=== PATIENT | male | born 1990 | race Caucasian/White ===

== ENCOUNTER 2020-06-15 14:10 | Outpatient (REF) | payer OTHER, SELFPAY | END 2020-06-15 14:11 | disposition home or self-care (01) | LOC: HO.LAB 14:10 | PROVIDERS: PCP Family Medicine; Visit Provider Internal Medicine | DX: Z20.828 Contact with and (suspected) exposure to other viral communicable diseases (principal) | CPT/HCPCS: C9803; U0003 ==

== ENCOUNTER 2020-06-27 14:22 | Emergency (ER) | payer OTHER, SELFPAY ==
--- NOTE | 2020-06-27 | ECG_ITS ---
Test Reason : SYNCOPE Blood Pressure : / mmHG Vent. Rate : 076 BPM Atrial Rate : 076 BPM P-R Int : 148 ms QRS Dur : 084 ms QT Int : 404 ms P-R-T Axes : 074 058 046 degrees QTc Int : 454 ms Sinus rhythm with marked sinus arrhythmia Otherwise normal ECG No previous ECGs available Referred By: Faye Mcmillan Electronically Signed By:TAMI PEGUERO MD
[2020-06-27 15:44] VITALS: BP 117/60; PULSE 64; RESP 16; TEMP 37; O2SAT 96; BMI 25.7
[2020-06-27 17:45] VITALS: BP 101/62; PULSE 87; RESP 16; TEMP 36.7; O2SAT 96
--- NOTE | 2020-06-27 17:45 | CT_ITS ---
EXAMINATION: CT ABDOMEN AND PELVIS WITH CONTRAST CLINICAL INFORMATION: 29-year-old male patient with periumbilical pain. Per chart: History of left testicular cancer and orchiectomy. COMPARISON: None TECHNIQUE: Multidetector volumetric images were obtained from the superior aspect of the liver through the pubic symphysis following administration 85 mL of Omnipaque 350 intravenous contrast. Sagittal and coronal reformatted images were obtained on the technologist's workstation. Oral contrast: No This CT examination was performed using dose optimization techniques as appropriate, variously including the following: *Automated exposure control *Adjustment of mA and/or kV according to patient size (this includes techniques or standardized protocols for targeted exams where dose is matched to indication/reason for exam; i.e. extremities or head) *Use of iterative reconstruction technique DLP: 500 mGy-cm FINDINGS: MANAGER OF ALLIED HEALTH SERVICES: Unremarkable. LUNG BASES: The visualized lung bases are unremarkable. LIVER, GALLBLADDER, AND BILIARY TREE: The liver is normal in size, shape, and attenuation. No focal hepatic lesion or biliary ductal dilatation is present. The gallbladder is unremarkable with no evidence of radiopaque gallstones, gallbladder wall thickening, or obvious pericholecystic inflammatory changes. PANCREAS: Unremarkable. SPLEEN: Unremarkable. ADRENAL GLANDS: Unremarkable. KIDNEYS AND URETERS: The kidneys are normal in size, shape, and attenuation. No hydronephrosis, hydroureter, or calculi seen. No perinephric stranding. BLADDER: Unremarkable. GASTROINTESTINAL TRACT: The small and large bowel are unremarkable. No pericecal inflammatory reaction. ABDOMINAL WALL: No significant hernia is appreciated. LYMPH NODES: Small right lower quadrant mesenteric nodes are present. No sign of retroperitoneal or pelvic lymphadenopathy. VASCULAR: Unremarkable. PELVIC VISCERA: Unremarkable. OSSEOUS STRUCTURES: Unremarkable. CT/CT abdomen pelvis w con IMPRESSION: No significant abnormality.
--- NOTE | 2020-06-27 17:45 | US_ITS ---
EXAMINATION: US SCROTUM CLINICAL INFORMATION: 29-year-old male patient with history of left-sided testicular cancer status post orchiectomy. Now presents with right testicular lump . COMPARISON: None TECHNIQUE: A sonogram of the scrotum was performed assessing lewis-scale appearance and color Doppler flow. FINDINGS: RIGHT: Right testicle measures 4.6 x 2.5 x 2.9 cm, volume 18 mL. No focal testicular parenchymal lesions are visualized. Spectral Doppler analysis was not obtained. Right epididymal head is normal in size. A small cyst is located in the head of the epididymis measuring 0.5 cm. No right hydrocele or varicocele is seen. Right epididymal Doppler flow is normal. US/US scrotum IMPRESSION: 1. Normal right testicle. 2. Small right epididymal head cyst.
--- NOTE | 2020-06-27 17:50 | ED_ITS ---
HPI - General Adult General Chief complaint: Syncope Stated complaint: NVD Time Seen by Provider: 06/27/20 17:18 Source: patient Mode of arrival: ambulatory Limitations: no limitations History of Present Illness HPI narrative: Patient comes to emergency room complaining of a syncopal episode after trying to have a bowel movement. Patient states that earlier today, he had been complaining sharp/crampy abdominal pain in the periumbilical region, patient went to the bathroom trying to have a bowel movement, patient passed out while he was in the bathroom. Patient states that he is not sure if he hit his head but does not believe that he had any head injury. Patient went to urgent care and he was asked to come to emergency room to rule out appendicitis. Patient also mentioned that a few days ago he noticed that he has a pea-sized lump in his right teste, not tender. 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) MD complaint: Abdominal pain, testicular mass Related Data Home Medications Medication Instructions Recorded Confirmed melatonin 10 mg capsule 10 mg PO BEDTIME PRN 06/26/20 Previous Rx's Medication Instructions Recorded hyoscyamine sulfate 0.25 mg PO QID PRN #10 tab 06/27/20 Allergies Allergy/AdvReac Type Severity Reaction Status Date / Time No Known Allergies Allergy Verified 06/26/20 10:36 Review of Systems Review of Systems: Constitutional : No Weight loss, No Fever, No Chills, No Night Sweats, No Fatigue, No Malaise ENT/Mouth : No Hearing loss, No Ear Pain, No Nasal Congestion, No Sinus Pain, No Hoarseness, No sore throat, No Rhinorrhea, No Swallowing Difficulty Eyes: No Eye Pain, No Swelling, No Redness, No Foreign Body, No Discharge, No Vision Changes Cardiovascular : No Chest Pain, No SOB, No Dyspnea on Exertion, No Orthopnea, No Edema, No Palpitations Respiratory : No Cough, No Sputum, No Wheezing, No Smoke Exposure, No Dyspnea Gastrointestinal : No Nausea, No Vomiting, No Diarrhea, complaining of periumbilical and right lower quadrant pain and cramping. Genitourinary : Complaining of a pea-sized testicular tumor on the right side, No Dysuria, No Urinary Frequency, No Hematuria, No Urinary Incontinence, No Urgency, No Flank Pain, No Urinary Flow Changes, No Hesitancy Musculoskeletal : No joint pain, No Myalgias, No Joint Swelling Skin : No Skin Lesions, No rash Neuro : No Weakness, No Numbness, No Paresthesias, complaining of a syncopal episodes/loss of consciousness. No Headache Psych : No Anxiety/Panic, No Depression, No SI/HI/AH/VH, No Social Issues, Heme/Lymph: No Bruising, No Bleeding,No Lymphadenopathy Endocrine : No Polyuria, No Polydipsia, No Temperature Intolerance [facility] Past Medical History Medical History (Updated 06/27/20 @ 20:21 by Faye Mcmillan MD) High cholesterol Testicular cancer Social History Social History Advance Directives: No Advance Directives Information Provided: No Physical Exam Vital Signs: Vital Signs: Last Vital Signs Temp 98.1 F 06/27/20 17:45 Pulse 87 06/27/20 17:45 Resp 16 06/27/20 17:45 BP 101/62 06/27/20 17:45 Pulse Ox 96 06/27/20 17:45 Body Mass Index 25.7 Course Course Course Narrative: I discussed the ultrasound with the patient, patient has a cyst in the teste. Patient's white blood cell count is 16. No acute findings of appendicitis on CT scan or physical exam. Patient being discharged home. Patient feeling better. Likely viral infection, Medical Decision Making Lab Data Result diagrams: 06/27/20 17:58 06/27/20 17:58 Labs: Lab Results 06/27/20 06/27/20 Range/Units 17:58 17:58 WBC 16.0 H (4.8-10.8) X10*3/uL RBC 4.72 (4.60-5.80) X10*6/uL Hgb 14.8 (14.0-18.0) g/dl Hct 42.0 (42-52) % MCV 89.0 (80-98) fL MCH 31.4 (27.0-33.0) pg MCHC 35.2 (31.0-36.0) g/dl RDW 11.5 (11.0-16.0) % Plt Count 205 (160-400) X10*3/uL MPV 10.8 (9.4-12.4) fL Immature Gran % (Auto) 0.2 (0.0-0.4) % Neut % (Auto) 89.8 H (45-73) % Lymph % (Auto) 4.4 L (20-40) % [place] % (Auto) 5.3 (2-11) % Eos % (Auto) 0.0 (0-4) % Baso % (Auto) 0.3 (0-2) % Lymph # (Auto) 0.7 L (1.2-4.9) X10*3/uL [place] # (Auto) 0.9 (0.1-1.2) X10*3/uL Eos # (Auto) 0.0 (0.0-0.4) X10*3/uL Baso # (Auto) 0.1 (0.0-0.2) X10*3/uL Abs Immat Gran (auto) 0.04 H (0.00-0.03) X10*3/uL Absolute Neuts (auto) 14.4 H (2.0-8.3) X10*3/uL Absolute Nucleated RBC 0.000 (0.0-0.012) X10*3/uL Nucleated RBC % (auto) 0.0 (0.0-0.2) /100WBC Sodium 137 (135-145) mmol/L Potassium 4.2 (3.3-5.1) mmol/l Chloride 102 (96-108) mmol/L Carbon Dioxide 27 (22-29) mmol/L Anion Gap 12 (12-20) BUN 16 (9-16) mg/dL Creatinine 0.93 (0.5-1.4) mg/dL Estim Creat Clear Calc 122.5 Estimated GFR > 60 Random Glucose 104 (60-115) mg/dL Calcium 9.2 (8.4-10.2) mg/dL Total Bilirubin 0.7 (0.0-1.0) mg/dL Direct Bilirubin 0.3 (0.0-0.5) mg/dL AST 23 (5-37) U/L ALT 26 (0-40) U/L Alkaline Phosphatase 66 (39-117) U/L Total Protein 7.4 (6.5-8.0) g/dL Albumin 4.7 (3.5-5.0) g/dL Lipase 8 (8-78) U/L Imaging Data CT scan - abdomen: Radiologist's impression: FINDINGS: ALUM OPERATOR: Unremarkable. LUNG BASES: The visualized lung bases are unremarkable. LIVER, GALLBLADDER, AND BILIARY TREE: The liver is normal in size, shape, and attenuation. No focal hepatic lesion or biliary ductal dilatation is present. The gallbladder is unremarkable with no evidence of radiopaque gallstones, gallbladder wall thickening, or obvious pericholecystic inflammatory changes. PANCREAS: Unremarkable. SPLEEN: Unremarkable. ADRENAL GLANDS: Unremarkable. KIDNEYS AND URETERS: The kidneys are normal in size, shape, and attenuation. No hydronephrosis, hydroureter, or calculi seen. No perinephric stranding. BLADDER: Unremarkable. GASTROINTESTINAL TRACT: The small and large bowel are unremarkable. No pericecal inflammatory reaction. ABDOMINAL WALL: No significant hernia is appreciated. LYMPH NODES: Small right lower quadrant mesenteric nodes are present. No sign of retroperitoneal or pelvic lymphadenopathy. VASCULAR: Unremarkable. PELVIC VISCERA: Unremarkable. OSSEOUS STRUCTURES: Unremarkable. CT/CT abdomen pelvis w con IMPRESSION: No significant abnormality. Scrotum ultrasound: Radiologist's impression: FINDINGS: RIGHT: Right testicle measures 4.6 x 2.5 x 2.9 cm, volume 18 mL. No focal testicular parenchymal lesions are visualized. Spectral Doppler analysis was not obtained. Right epididymal head is normal in size. A small cyst is located in the head of the epididymis measuring 0.5 cm. No right hydrocele or varicocele is seen. Right epididymal Doppler flow is normal. US/US scrotum IMPRESSION: 1. Normal right testicle. 2. Small right epididymal head cyst. ECG Data Attestation: I personally reviewed and interpreted this ECG as follows: (Heart rate 76, sinus rhythm, QTC 454, no ST segment depressions or elevations, no T- wave inversions) Discharge Plan Discharge Clinical Impression: Cyst of testis Abdominal pain Qualifiers: Abdominal location: unspecified location Qualified Code(s): R10.9 - Unspecified abdominal pain Patient Disposition: Home, Self-Care Instructions: Abdominal Pain (ED), Scrotal Pain (ED) Additional Instructions: Please follow-up with your primary care physician tomorrow. If you have any worsening or new symptoms, please return to the emergency room or call 911 Prescriptions: New hyoscyamine sulfate 0.125 mg tablet 0.25 mg PO QID PRN (Reason: dyspepsia) Qty: 10 RF: 0 No Action melatonin 10 mg capsule 10 mg PO BEDTIME PRNRF: 0
[2020-06-27 18:06] LABS: Basophils Absolute Auto 0.1 X10*3/uL (0.0-0.2); Basophils Percent Auto 0.3 % (0-2); Hemoglobin 14.8 g/dl (14.0-18.0); Imm Gran Abs Auto 0.04 X10*3/uL (0.00-0.03); Imm Gran Pct Auto 0.2 % (0.0-0.4); Lymphocytes Absolute Auto 0.7 X10*3/uL (1.2-4.9); Lymphocytes Percent Auto 4.4 % (20-40); MANUAL DIFF FLAG NO; Mean Corpuscular HGB Conc 35.2 g/dl (31.0-36.0); Mean Corpuscular Hemoglobin 31.4 pg (27.0-33.0); Mean Platelet Volume 10.8 fL (9.4-12.4); Monocytes Absolute Auto 0.9 X10*3/uL (0.1-1.2); Monocytes Percent Auto 5.3 % (2-11); Neutrophils Absolute Auto 14.4 X10*3/uL (2.0-8.3); Neutrophils Percent Auto 89.8 % (45-73); Platelet Count 205 X10*3/uL (160-400); Red Blood Count 4.72 X10*6/uL (4.60-5.80); Red Cell Distribution Width 11.5 % (11.0-16.0)
[2020-06-27 18:38] LABS: Alanine Aminotransferase 26 U/L (0-40); Albumin Level 4.7 g/dL (3.5-5.0); Alkaline Phosphatase 66 U/L (39-117); Anion Gap 12 (12-20); Aspartate Amino Transferase 23 U/L (5-37); Bilirubin Direct 0.3 mg/dL (0.0-0.5); Bilirubin Total 0.7 mg/dL (0.0-1.0); Blood Urea Nitrogen 16 mg/dL (9-16); Calcium 9.2 mg/dL (8.4-10.2); Carbon Dioxide 27 mmol/L (22-29); Chloride 102 mmol/L (96-108); Creatinine Clr Calc Pharmacy 122.5; Estimated Glomerular Filt Rate > 60; Glucose Random 104 mg/dL (60-115); Lipase 8 U/L (8-78); Potassium 4.2 mmol/l (3.3-5.1); Sodium 137 mmol/L (135-145); Total Protein 7.4 g/dL (6.5-8.0)
[2020-06-27] MEDS: iohexoL 350 MG/ML 100 ML INFUS..BTL 85 ML IV (19:13)
== END 2020-06-27 20:56 | disposition home or self-care (01) ==
PROVIDERS: Emergency Provider Emergency Medicine; PCP Family Medicine
DX: R55 Syncope and collapse (principal); N44.2 Benign cyst of testis; R10.9 Unspecified abdominal pain; Z79.899 Other long term (current) drug therapy
CPT/HCPCS: 36415; 74177; 76870; 80048; 80076; 83690; 85025; 93005; 99284; 99285; Q9967

== ENCOUNTER 2020-07-26 07:00 | Outpatient (RCR) | payer OTHER, SELFPAY ==
--- NOTE | 2020-09-18 13:23 | MHC.PT.DC ---
[facility] [place] Office [place] Office [place] Office [address] Griffin Murray [address] [phone] F: [phone] F: [phone] F: [phone] F: [phone] Physical Therapy Discharge Report Diagnosis: Sciatica associated with disorder lumbar spine Date of Surgery: Date of Evaluation: 03/22/20 Date of Discharge: Treatments to Date: 22 Cancellations to Date: 1 No Shows to Date: 0 Discharge Status: Independent with HEP Discharge Summary: pt notes he feels like he is comfortable with being able to manage s/s as they come. he is I with [facility]. We will d/c to [facility] [place]. Pt progressed well over the course of PT. Still with some s/s and limitations but more able to manage confidently at this time. Electronically signed by: Porter Otoole, PT Please sign and return to therapist. Thank you for your referral.
== END 2020-09-18 14:01 | disposition home or self-care (01) ==
LOC: HO.PTCHIC 07:00
PROVIDERS: PCP Family Medicine; Visit Provider Family Medicine
DX: M53.86 Other specified dorsopathies, lumbar region (principal)
CPT/HCPCS: 97110; 97112; 97140; 97530

== ENCOUNTER 2020-12-21 09:19 | Outpatient (REF) | payer OTHER, SELFPAY ==
[2020-12-21 10:39] LABS: Hematocrit 42.2 % (42-52); Hemoglobin 14.2 g/dl (14.0-18.0); Mean Corpuscular HGB Conc 33.6 g/dl (31.0-36.0); Mean Corpuscular Hemoglobin 30.1 pg (27.0-33.0); Mean Corpuscular Volume 89.6 fL (80-98); Mean Platelet Volume 10.9 fL (9.4-12.4); Platelet Count 231 X10*3/uL (160-400); Red Blood Count 4.71 X10*6/uL (4.60-5.80); White Blood Count 5.1 X10*3/uL (4.8-10.8)
[2020-12-21 10:53] LABS: Estimated Average Glucose 100 mg/dL; Hemoglobin A1c % 5.1 %
[2020-12-21 11:03] LABS: Alanine Aminotransferase 24 U/L (0-40); Albumin Level 4.5 g/dL (3.5-5.0); Alkaline Phosphatase 66 U/L (39-117); Anion Gap 13 (12-20); Aspartate Amino Transferase 23 U/L (5-37); Bilirubin Direct 0.2 mg/dL (0.0-0.5); Bilirubin Total 0.6 mg/dL (0.0-1.0); Blood Urea Nitrogen 15 mg/dL (9-16); Calcium 9.2 mg/dL (8.4-10.2); Carbon Dioxide 27 mmol/L (22-29); Chloride 107 mmol/L (96-108); Cholesterol 174 mg/dL; Estimated Glomerular Filt Rate > 60; Glucose Random 94 mg/dL (60-115); HDL Cholesterol 47 mg/dL; LDL Cholesterol Calculated 114 mg/dl; Potassium 4.7 mmol/L (3.3-5.1); Sodium 142 mmol/L (135-145); Total Protein 6.9 g/dL (6.5-8.0); Triglycerides 67 mg/dL
[2020-12-21 11:23] LABS: Thyroid Stimulating Hormone 1.52 uIU/mL (0.32-4.0)
== END 2020-12-21 09:20 | disposition home or self-care (01) ==
LOC: HO.WFDLDS 09:19
PROVIDERS: Visit Provider Internal Medicine
DX: E78.5 Hyperlipidemia, unspecified (principal)
CPT/HCPCS: 36415; 80048; 80061; 80076; 83036; 84443; 85027

== ENCOUNTER 2021-03-27 08:00 | Outpatient (RCR) | payer OTHER, SELFPAY ==
--- NOTE | 2021-01-02 16:25 | MHC.PT.EP ---
[facility] [place] Office [place] Office [place] Office [address] Griffin Murray [address] [phone] F: [phone] F: [phone] F: [phone] F: [phone] Physical Therapy Plan of Care Date of Evaluation: Date of Surgery: Diagnosis: SEVERE LBP WITH RIGHT LE SXS Assessment: 30 YO MALE REF TO PT WITH LBP AND Rt LE SXS x APPROX 1 MONTH- H/O Rt TESTICULAR CA W ORCHIECTOMY 14 MOS AGO; Pt IS CURRENTLY ON PATERNITY LEAVE, HE IS A FULL-TIME MARINE. OBJECTIVE FINDINGS: DECR FLEXIB IN Lt > Rt HIP AND LUMBOSACR REGION; LIMITED TRUNK AROM (EXTEN), (+) PELVIC ASYMM, DECR POSTURAL AWARENESS, MUSCLE IMBALANCE-> GLUTES, AND INTER Rt KNEE SXS/ LS PAIN. FUNCTIONALLY Pt HAS DECR SHERLYN TO INCR STAND, SITTING, RUNNING, FUNCTIONAL SQUATTING, AND MORE PHYSICALLY DEMANDING ADLs. HE IS A GOOD PT CANDIDATE TO ADDRESS THE ABOVE FINDINGS, DEV HEP, AND SELF-SX MGMT TECHN. Frequency and Duration: The patient will be seen 2x WK x 5 WKS Short Term Goals: Pt'S LBP DECR TO 2-3/10 AT MAX AND Rt LE SXS REDUCED BY 75% IN 3 WKS Pt INDEP W SELF- CORRECT POSTURE AND DEMON WFL FUNCT SQUAT IN 3 WKS Pt DEMON WFL PELVIC SYMMETRY AND WFL LEFT HIP FLEXIBILITY/ TRUNK AROM IN 3 WKS Intermediate Goals: Pt INDEP HEP AND SELF-SX MGMT TECHN IN 5 WKS Pt REPORT ABLE TO RUN 3 MILES, PERFORM FITNESS REQUIREMENTS, AND RESUME HIGHER LEVEL ADLs W IMPROVED OSWESTRY SCORE BY AT LEAST 5 POINTS IN 5 WKS Treatment Plan: Modalities to reduce pain, spasms and effusion. Manual therapy to restore motion and function. Therapeutic exercise to improve strength and flexibility. Neuromuscular re-education for posture and balance. Therapeutic activities to return to functional activities of daily living. Electronically signed by: Sushma Boss,PT Please sign and return to therapist. Thank you for your referral.
--- NOTE | 2021-04-03 11:31 | MHC.PT.EP ---
[facility] [place] Office [place] Office [place] Office [address] Griffin Murray [address] [phone] F: [phone] F: [phone] F: [phone] F: [phone] Physical Therapy Plan of Care Date of Evaluation: Date of Surgery: Diagnosis: SEVERE LBP WITH RIGHT LE SXS Assessment: 30 YO MALE REF TO PT WITH LBP AND Rt LE SXS x APPROX 1 MONTH- H/O Rt TESTICULAR CA W ORCHIECTOMY 14 MOS AGO; Pt IS CURRENTLY ON PATERNITY LEAVE, HE IS A FULL-TIME MARINE. OBJECTIVE FINDINGS: DECR FLEXIB IN Lt > Rt HIP AND LUMBOSACR REGION; LIMITED TRUNK AROM (EXTEN), (+) PELVIC ASYMM, DECR POSTURAL AWARENESS, MUSCLE IMBALANCE-> GLUTES, AND INTER Rt KNEE SXS/ LS PAIN. FUNCTIONALLY Pt HAS DECR SHERLYN TO INCR STAND, SITTING, RUNNING, FUNCTIONAL SQUATTING, AND MORE PHYSICALLY DEMANDING ADLs. HE IS A GOOD PT CANDIDATE TO ADDRESS THE ABOVE FINDINGS, DEV HEP, AND SELF-SX MGMT TECHN. Frequency and Duration: The patient will be seen 2x WK x 5 WKS Short Term Goals: Pt'S LBP DECR TO 2-3/10 AT MAX AND Rt LE SXS REDUCED BY 75% IN 3 WKS Pt INDEP W SELF- CORRECT POSTURE AND DEMON WFL FUNCT SQUAT IN 3 WKS Pt DEMON WFL PELVIC SYMMETRY AND WFL LEFT HIP FLEXIBILITY/ TRUNK AROM IN 3 WKS Shelter Goals: Pt INDEP HEP AND SELF-SX MGMT TECHN IN 5 WKS Pt REPORT ABLE TO RUN 3 MILES, PERFORM FITNESS REQUIREMENTS, AND RESUME HIGHER LEVEL ADLs W IMPROVED OSWESTRY SCORE BY AT LEAST 5 POINTS IN 5 WKS Treatment Plan: Modalities to reduce pain, spasms and effusion. Manual therapy to restore motion and function. Therapeutic exercise to improve strength and flexibility. Neuromuscular re-education for posture and balance. Therapeutic activities to return to functional activities of daily living. Electronically signed by: Porter Otoole, PT Please sign and return to therapist. Thank you for your referral.
== END 2021-04-03 12:39 | disposition home or self-care (01) ==
LOC: HO.PTCHIC 08:00
PROVIDERS: PCP Family Medicine; Visit Provider Internal Medicine
DX: M54.5 Low back pain (principal)
CPT/HCPCS: 97110; 97112; 97140; 97162

== ENCOUNTER 2021-04-16 14:10 | Outpatient (REF) | payer OTHER, SELFPAY ==
[2021-04-16 14:24] LABS: Appearance Urine CLEAR; Color Urine YELLOW; Glucose Urine UA NEG (NEG); Leukocyte Esterase Urine NEG (NEG); Nitrite Urine NEG (NEG); PH 6.5 (5.0-8.0); Specific Gravity - Urine 1.015 (1.005-1.025); Urine Blood NEG (NEG); Urine Ketones NEG (NEG); Urine Protein NEG (NEG-TRACE)
== END 2021-04-16 14:11 | disposition home or self-care (01) ==
LOC: HO.LNP 14:10
PROVIDERS: Visit Provider Family Medicine
DX: Z00.00 Encounter for general adult medical examination without abnormal findings (principal)
CPT/HCPCS: 81003

== ENCOUNTER → 2021-06-22 09:53 | Outpatient (BNVA) | payer OTHER, SELFPAY | PROVIDERS: PCP Family Medicine; Referring Provider Family Medicine; Visit Provider Nurse Practitioner | DX: K58.1 Irritable bowel syndrome with constipation (principal); K92.1 Melena; R11.2 Nausea with vomiting, unspecified; R10.33 Periumbilical pain | CPT/HCPCS: 99202 ==

== ENCOUNTER → 2021-07-24 07:41 | Outpatient (BNVA) | payer OTHER, SELFPAY | PROVIDERS: PCP Family Medicine; Referring Provider Family Medicine; Visit Provider Nurse Practitioner | DX: K64.9 Unspecified hemorrhoids (principal); K58.1 Irritable bowel syndrome with constipation; K92.1 Melena | CPT/HCPCS: 99212 ==

== ENCOUNTER 2021-08-14 10:14 | Day surgery (SDC) | payer OTHER, SELFPAY ==
[2021-08-08 10:22] VITALS: BMI 25.7
--- NOTE | 2021-08-13 09:47 | HO.ANESPROP2 ---
Documented by User: Rhina Alvarez NP 08/13/21 09:48 HPI - Anesthesia Eval Consult details Narrative: 30yo M for Colonoscopy PMFSH Active Problems Active Problems: All Active Problems (Updated 08/08/21 @ 10:17 by Jsoelyn Arthur RN) History of malignant neoplasm of testis (Acute) Mass of right testicle (Acute) Hyperlipidemia (Acute) Low back pain (Acute) Hematochezia (Acute) Irritable bowel syndrome with constipation (Acute) Nausea and vomiting (Acute) Periumbilical abdominal pain (Acute) Hemorrhoids (Acute) Past Medical History Medical History (Updated 08/08/21 @ 10:17 by Joselyn Arthur RN) Hemorrhoids High cholesterol IBS (irritable bowel syndrome) Testicular cancer Social History Social History Housing: House Are you a primary clinical manager home care to a significant other at home: No Do you presently have visiting nurse or other home services: No Patient Tobacco Use Status: Current someday Tobacco user Tobacco use type: Cigar e-Cigarette/Vaping Use: Never Used Use of substances other than those prescribed or required for medical reasons: No Have you been hit, kicked, punched, or otherwise hurt by someone within the past year? If so, by whom?: No Are you DNR?: No Advance Directives: No Advance Directives Information Provided: No Advance Directives on File: No Recently lost weight without trying: No Eating poorly because of decreased appetite: No Nutrition Risks: No Nutritional Risk service: Yes Current occupational status: employed Current occupation: traffic or system dispatcher Meds Allergies Allergy/AdvReac Type Severity Reaction Status Date / Time No Known Allergies Allergy Verified 08/08/21 10:17 Home Medications Medication Instructions Recorded Confirmed Last Taken Type melatonin 10 mg capsule 10 mg PO BEDTIME PRN 06/26/20 08/08/21 Unknown History Exam Exam Date and Time: August 13, 2021 0947 Height,Weight and Vital Signs: Height 5 ft 11 in Weight 83.915 kg Pertinent Lab Results Pertinent Lab Results: Laboratory Tests 12/21/20 12/21/20 09:25 09:25 WBC 5.1 Hgb 14.2 Hct 42.2 Plt Count 231 Sodium 142 Potassium 4.7 Chloride 107 Carbon Dioxide 27 BUN 15 Creatinine 0.98 Narrative Narrative: EKG Vent. Rate : 076 BPM ? ? Atrial Rate : 076 BPM ?? P-R Int : 148 ms? QRS Dur : 084 ms ? ? QT Int : 404 ms ? ? ? P-R-T Axes : 074 058 046 degrees ?? QTc Int : 454 ms ? Sinus rhythm with marked sinus arrhythmia Otherwise normal ECG No previous ECGs available Assessment and Plan Assessment Anesthesia Assessment: Chart Reviewed Documented by User: Asia Sutton MD 08/14/21 11:42 [facility] Past Medical History Medical History (Updated 08/08/21 @ 10:17 by Joselyn Arthur RN) Hemorrhoids High cholesterol IBS (irritable bowel syndrome) Testicular cancer Family History Family history of problems with anesthesia: No Surgical History History of Problems with Anesthesia: No Social History Social History Housing: House Are you a primary clinical manager home care to a significant other at home: No Do you presently have visiting nurse or other home services: No Patient Tobacco Use Status: Current someday Tobacco user Tobacco use type: Cigar e-Cigarette/Vaping Use: Never Used Use of substances other than those prescribed or required for medical reasons: No Have you been hit, kicked, punched, or otherwise hurt by someone within the past year? If so, by whom?: No Are you DNR?: No Advance Directives: No Advance Directives Information Provided: No Advance Directives on File: No Recently lost weight without trying: No Eating poorly because of decreased appetite: No Nutrition Risks: No Nutritional Risk service: Yes Current occupational status: employed Current occupation: traffic or system dispatcher Meds Allergies Allergy/AdvReac Type Severity Reaction Status Date / Time No Known Allergies Allergy Verified 08/08/21 10:17 Home Medications Medication Instructions Recorded Confirmed Last Taken Type melatonin 10 mg capsule 10 mg PO BEDTIME PRN 06/26/20 08/08/21 Unknown History Exam Height,Weight and Vital Signs: Height 5 ft 11 in Weight 83.915 kg Vital Signs Temp Pulse Resp BP Pulse Ox 08/14/21 10:55 98.6 F 53 16 114/59 L 97 Pertinent Lab Results Pertinent Lab Results: Laboratory Tests 12/21/20 12/21/20 09:25 09:25 WBC 5.1 Hgb 14.2 Hct 42.2 Plt Count 231 Sodium 142 Potassium 4.7 Chloride 107 Carbon Dioxide 27 BUN 15 Creatinine 0.98 Airway Mallampati Class: I TM Dist: >3cm Neck ROM: Full Loose/Missing/Broken Teeth: No Heart: RRR Lungs: CTAB Assessment and Plan Assessment Anesthesia Assessment: Anesthesia Plan Discussed Final Anesthetic Review Family History of Problems with Anesthesia: No History of Problems with Anesthesia: No NPO: Yes ASA Class: II Final Preanesthetic Review: No Changes in Pt Med Stat, Meds/Allgs Chart Reviewed, Consent Obtained/Reviewed and Anes Risks/Benef Reviewed Patient Risk: Low Procedure Risk: Low Assessment/Block/Sedation in SS: Assess/Block/Sedation-SS Anesthetic Plan Anesthetic Plan: MAC: Disposition: Standard PACU
[2021-08-14 10:55] VITALS: BP 114/59; PULSE 53; RESP 16; TEMP 37; O2SAT 97
[2021-08-14] MEDS: Lactated Ringers 1,000 ML 100 ML IVCONT (11:17)
--- NOTE | 2021-08-14 11:18 | MHC.SHP ---
Pre-Procedural Eval Section A Date of Service: 08/14/21 Section B Chief Complaint: IBS with Constipation Details of Present Illness: grandfather with colon cancer Relevant Family History (Specify if Yes): Yes Relevant Social History: None Present Medications: see Short Stay Collaborative assessment Medical History: Significant History (Hemorrhoids High cholesterol IBS (irritable bowel syndrome) Testicular cancer) History of Previous Operations: Relevant previous surgery/procedure and date(s) (orchiectomy) Allergies: Allergies Allergy/AdvReac Type Severity Reaction Status Date / Time No Known Allergies Allergy Verified 08/08/21 10:17 Review of Systems Sugical H&P ROS: Negative: Constitution, Cardiovascular, Respiratory, Neurological, Psychiatric, Hem-Onc, Allergic/Immunologic, Gastrointestinal, Genitourinary, Musculoskeletal, Integumentary, Endocrine and Eyes/Ears/Nose/Throat Exam Surgical H&P Exam: Normal: HEENT, Normal: Heart, Normal: Lungs, Normal: Extremities, Normal: Abdomen, Normal: Skin and Normal: Neurological Plan Diagnosis/Plan: Unchanged I have reviewed the history and physical and performed a pertinent physical examination on my patient. No changes have occurred unless specified.
--- NOTE | 2021-08-14 11:57 | P.BOP_ITS ---
Brief Operative Note Date of Service: 08/14/21 Pre-op diagnosis: rectal bleeding, FH of CRC Post-op diagnosis: same Procedure: see op note Surgeon: Milli Zepeda MD Anesthesia: MAC Was an Quality Control Coordinator used for this Procedure?: No Estimated blood loss (mL): 0 Condition: stable Disposition: PACU
--- NOTE | 2021-08-14 11:58 | P.OP_ITS ---
Operative Note Operative Note Date of Service: 08/14/21 Narrative: Operative Information Procedure Description: Colonoscopy COLONOSCOPY Instrument: Olympus variable stiffness pediatric scope 190L Colonoscopy Monitoring: Vital signs and clinical assessment, continuous EKG monitoring, Pulse oximetry, Carbon Dioxide monitoring and blood pressure monitoring were done throughout the procedure. Colon withdrawal time was 9 minutes. Procedure: The patient was placed in the left lateral decubitis position and pre-procedure medications were administered. After a digital rectal examination of the ano-rectum, the video colonoscope was inserted into the rectum and advanced through the colon to the cecum/TI. The colonoscope was slowly withdrawn in a retrograde panoramic fashion and the colon mucosa was carefully examined including a retroflexed view of the rectum. Findings and interventions are described below. Procedure Difficulty: easy Findings: Terminal Ileum-normal Cecum:normal Ascending Colon: 7-8 mm sessile polyp noted on retroflexion and removed with forceps Transverse Colon - 8-9 mm sessile polyp removed with cold snare Descending Colon:normal Sigmoid Colon: normal Rectum: Retroflexion with small inflammed internal hemorrhoids, grade I Anorectum - normal Colon preparation: [place] Bowel Preparation Scale Right colon; 2 Transverse colon: 3 Left colon; 3 (0 = Unprepared colon segment with mucosa not seen due to solid stool that cannot be cleared. 1 = Portion of mucosa of the colon segment seen, but other areas of the colon segment not well seen due to staining, residual stool and/or opaque liquid. 2 = Minor amount of residual staining, small fragments of stool and/or opaque liquid, but mucosa of colon segment seen well. 3 = Entire mucosa of colon segment seen well with no residual staining, small fragments of stool or opaque liquid) Impression and Post Procedure Diagnosis: polyps internal hemorrhoids Plan: High fiber diet leaflet Avoid straining at stool, epsom salts and sitz bath, anusol supps or cream Repeat Colonoscopy in 5 years due to polyps or earlier if clinically indicated Above findings were reviewed with the patient and relevant handouts were provided if indicated.
[2021-08-14 12:05] VITALS: BP 83/39; PULSE 62; RESP 16; TEMP 37.2; O2SAT 97
[2021-08-14 12:20] VITALS: BP 90/47; PULSE 55; RESP 17; O2SAT 100
[2021-08-14 12:47] VITALS: BP 90/47; PULSE 57; RESP 18; TEMP 37.2; O2SAT 98
== END 2021-08-14 13:05 | disposition home or self-care (01) ==
PROVIDERS: PCP Family Medicine; Visit Provider Internal Medicine Gastroenterology
PROC: 0DJD8ZZ Inspection of Lower Intestinal Tract, Via Natural or Artificial Opening Endoscopic (ICD-10-PCS; CPT 45378; principal; 2021-08-14 11:40)
DX: K58.1 Irritable bowel syndrome with constipation (principal); K92.1 Melena; R11.2 Nausea with vomiting, unspecified; D12.2 Benign neoplasm of ascending colon; K63.5 Polyp of colon; K64.0 First degree hemorrhoids; Z80.0 Family history of malignant neoplasm of digestive organs; R10.33 Periumbilical pain; E78.00 Pure hypercholesterolemia, unspecified; Z85.47 Personal history of malignant neoplasm of testis; Z72.0 Tobacco use; Z79.899 Other long term (current) drug therapy
CPT/HCPCS: 45385; 45380; 88305

== ENCOUNTER → 2021-09-06 08:04 | Outpatient (BNVA) | payer OTHER, SELFPAY | PROVIDERS: PCP Family Medicine; Visit Provider Nurse Practitioner | DX: K58.1 Irritable bowel syndrome with constipation (principal); R11.2 Nausea with vomiting, unspecified; R10.33 Periumbilical pain; D12.6 Benign neoplasm of colon, unspecified | CPT/HCPCS: 99212 ==

== ENCOUNTER → 2021-12-06 08:22 | Outpatient (BNVA) | payer OTHER, SELFPAY | PROVIDERS: PCP Family Medicine; Referring Provider Family Medicine; Visit Provider Nurse Practitioner | DX: K58.1 Irritable bowel syndrome with constipation (principal); K64.9 Unspecified hemorrhoids; Z86.010 Personal history of colon polyps | CPT/HCPCS: 99212 ==

== ENCOUNTER 2022-02-06 07:58 | Outpatient (REF) | payer OTHER, SELFPAY ==
[2022-02-06 11:17] LABS: MANUAL DIFF FLAG NO
[2022-02-06 11:39] LABS: Basophils Percent Auto 0.9 % (0-2); Eosinophils Absolute Auto 0.1 X10*3/uL (0.0-0.4); Eosinophils Percent Auto 2.3 % (0-4); Hematocrit 40.6 % (42.0-52.0); Hemoglobin 14.1 g/dl (14.0-18.0); Imm Gran Abs Auto 0.01 X10*3/uL (0.00-0.03); Imm Gran Pct Auto 0.2 % (0.0-0.4); Lymphocytes Absolute Auto 1.8 X10*3/uL (1.2-4.9); Lymphocytes Percent Auto 42.7 % (20-40); Mean Corpuscular HGB Conc 34.7 g/dl (31.0-36.0); Mean Corpuscular Hemoglobin 31.3 pg (27.0-33.0); Mean Platelet Volume 11.5 fL (9.4-12.4); Monocytes Absolute Auto 0.4 X10*3/uL (0.1-1.2); Monocytes Percent Auto 10.1 % (2-11); Neutrophils Absolute Auto 1.9 x10*3/uL (2.0-8.3); Neutrophils Percent Auto 43.8 % (45-73); Platelet Count 212 X10*3/uL (160-400); Red Blood Count 4.51 X10*6/uL (4.60-5.80); Red Cell Distribution Width 11.9 % (11.0-16.0); White Blood Count 4.3 X10*3/uL (4.8-10.8)
[2022-02-06 14:39] LABS: Free T4 (Free Thyroxine) 1.12 ng/dL (0.71-1.85)
[2022-02-06 15:23] LABS: Alanine Aminotransferase 16 U/L (0-40); Albumin Level 4.5 g/dL (3.5-5.0); Alkaline Phosphatase 58 U/L (39-117); Anion Gap 14 (12-20); Aspartate Amino Transferase 19 U/L (5-37); Bilirubin Total 0.7 mg/dL (0.0-1.0); Blood Urea Nitrogen 14 mg/dL (9-16); Calcium 8.7 mg/dL (8.4-10.2); Carbon Dioxide 24 mmol/L (22-29); Chloride 106 mmol/L (96-108); Estimated Glomerular Filt Rate > 60; Glucose Fasting 91 mg/dL (60-99); Potassium 4.4 mmol/L (3.3-5.1); Sodium 140 mmol/L (135-145); Total Protein 6.8 g/dL (6.5-8.0)
[2022-02-07 18:27] LABS: Triiodothyronine T3 Total 85 ng/dL (76-181)
[2022-02-11 19:02] LABS: Testosterone, Free 76.3 pg/mL (35.0-155.0); Testosterone, Total 477 ng/dL (250-1100)
== END 2022-02-06 07:59 | disposition home or self-care (01) ==
LOC: HO.WFDLDS 07:58
PROVIDERS: Visit Provider Family Medicine
DX: Z00.00 Encounter for general adult medical examination without abnormal findings (principal); E03.9 Hypothyroidism, unspecified; R53.83 Other fatigue
CPT/HCPCS: 36415; 80053; 84402; 84403; 84439; 84443; 84480; 85025

== ENCOUNTER 2022-09-19 09:42 | Outpatient (REF) | payer OTHER, SELFPAY ==
[2022-09-19 12:05] LABS: Alanine Aminotransferase 22 U/L (0-40); Albumin Level 4.3 g/dL (3.5-5.0); Alkaline Phosphatase 71 U/L (39-117); Anion Gap 15 (12-20); Aspartate Amino Transferase 22 U/L (5-37); Bilirubin Total 0.5 mg/dL (0.0-1.0); Blood Urea Nitrogen 16 mg/dL (9-16); Calcium 9.2 mg/dL (8.4-10.2); Carbon Dioxide 22 mmol/L (22-29); Chloride 108 mmol/L (96-108); Cholesterol 182 mg/dL; Estimated Glomerular Filt Rate > 60; Glucose Random 94 mg/dL (60-115); HDL Cholesterol 45 mg/dL; LDL Cholesterol Calculated 121 mg/dl; Potassium 4.6 mmol/L (3.3-5.1); Sodium 140 mmol/L (135-145); Total Protein 6.8 g/dL (6.5-8.0); Triglycerides 84 mg/dL
[2022-09-19 12:44] LABS: TSH reflex Free T4 1.37 uIU/mL (0.32-4.0)
[2022-09-21 08:34] LABS: LDL Cholesterol Direct 107 mg/dL (<100)
== END 2022-09-19 09:43 | disposition home or self-care (01) ==
LOC: HO.WFDLDS 09:42
PROVIDERS: Visit Provider Family Medicine
DX: Z00.00 Encounter for general adult medical examination without abnormal findings (principal); I10 Essential (primary) hypertension
CPT/HCPCS: 36415; 80053; 80061; 83721; 84443